=== PATIENT | female | born 1955 | race Caucasian/White ===

== ENCOUNTER 2017-10-19 13:29 | Emergency (ER) | payer BC ==
[2017-10-19 13:44] VITALS: BP 140/75
[2017-10-19] MEDS ORDERED: Triamcinolone Acetonide 40 MG/ML 1 ML MDV INJECT ONE (14:09)
--- NOTE | 2017-10-20 07:00 | EDM.PDOC ---
ED HPI GENERAL MEDICAL PROBLEM - General Chief Complaint: Skin Complaint Stated Complaint: SKIN IRRITATION Time Seen by Provider: 10/19/17 14:00 Source of Information: Reports: Patient History Limitations: Reports: No Limitations - History of Present Illness INITIAL COMMENTS - FREE TEXT/NARRATIVE: PtCris presents to ER with complaints of rash to her arms. Denies any fever or chills. No exposure to new medications, detergents, or soaps. She states that she did take one dose of benadryl on Friday. Location: Reports: Upper Extremity, Left, Upper Extremity, Right Associated Symptoms: Reports: Rash - Related Data Allergies Allergy/AdvReac Type Severity Reaction Status Date / Time metformin Allergy Diarrhea Verified 10/19/17 13:47 prednisone Allergy Anxiety Verified 10/19/17 13:48 Home Meds: Home Meds Ascorbic Acid [Vitamin C] 250 mg PO DAILY 10/19/17 [History] Calcium Carbonate [Calcium] 600 mg PO DAILY 10/19/17 [History] Cholecalciferol (Vitamin D3) [Vitamin D3] 800 units PO DAILY 10/19/17 [History] Chromium Picolinate 1 tab PO DAILY 10/19/17 [History] Magnesium Oxide [Magnesium] 500 mg PO DAILY 10/19/17 [History] Nystatin 1 applic TOP BID 10/19/17 [History] Past Medical History HEENT History: Reports: Cataract, Other (See Below) Other HEENT History: Presbyopia, Myopia Cardiovascular History: Reports: High Cholesterol Endocrine/Metabolic History: Reports: Diabetes, Type II, Obesity/BMI 30+ Hematologic History: Reports: Other (See Below) Other Hematologic History: Factor V inhibitor disorder Social & Family History - Tobacco Use Smoking Status *Q: Never Smoker - Recreational Drug Use Recreational Drug Use: No ED ROS GENERAL - Review of Systems Review Of Systems: See Below Constitutional: Reports: No Symptoms HEENT: Reports: No Symptoms Respiratory: Reports: No Symptoms Cardiovascular: Reports: No Symptoms Endocrine: Reports: No Symptoms GI/Abdominal: Reports: No Symptoms : Reports: No Symptoms Musculoskeletal: Reports: No Symptoms Skin: Reports: Pruritis, Rash Neurological: Reports: No Symptoms Psychiatric: Reports: No Symptoms Hematologic/Lymphatic: Reports: No Symptoms Immunologic: Reports: No Symptoms ED EXAM, GENERAL - Physical Exam Exam: See Below Exam Limited By: No Limitations General Appearance: Alert, WD/WN, No Apparent Distress Eye Exam: Bilateral Eye: EOMI, Normal Fundi, Normal Inspection, PERRL Ears: Normal External Exam, Normal Canal, Hearing Grossly Normal, Normal TMs Ear Exam: Bilateral Ear: Auricle Normal, Canal Normal, TM normal Nose: Normal Inspection, Normal Mucosa, No Blood Throat/Mouth: Normal Inspection, Normal Lips, Normal Teeth, Normal Gums, Normal Oropharynx, Normal Voice, No Airway Compromise Head: Atraumatic, Normocephalic Neck: Normal Inspection, Supple, Non-Tender, Full Range of Motion Respiratory/Chest: No Respiratory Distress, Lungs Clear, Normal Breath Sounds, No Accessory Muscle Use, Chest Non-Tender Cardiovascular: Normal Peripheral Pulses, Regular Rate, Rhythm, No Edema, No Gallop, No JVD, No Murmur, No Rub GI/Abdominal: Normal Bowel Sounds, Soft, Non-Tender, No Organomegaly, No Distention, No Abnormal Bruit, No Mass (Female) Exam: Deferred Rectal (Female) Exam: Deferred Back Exam: Normal Inspection, Full Range of Motion, NT Extremities: Normal Inspection, Normal Range of Motion, Non-Tender, Normal Capillary Refill, No Pedal Edema Neurological: Alert, Oriented, CN II-XII Intact, Normal Cognition, Normal Gait, Normal Reflexes, No Motor/Sensory Deficits Psychiatric: Normal Affect, Normal Mood Skin Exam: Warm, Dry, Intact, Normal Color, No Rash Lymphatic: No Adenopathy Course - Vital Signs Last Recorded V/S: Last Vital Signs Temp 37.2 C 10/19/17 13:36 Pulse 98 10/19/17 13:36 Resp 16 10/19/17 13:36 BP 140/75 10/19/17 13:36 Pulse Ox 96 10/19/17 13:36 - Orders/Labs/Meds Meds: Medications Discontinued Medications Generic Name Dose Route Start Last Admin Trade Name Luisq PRN Reason Stop Dose Admin Triamcinolone Acetonide 40 mg 10/19/17 14:09 10/19/17 14:17 Kenalog-40 INJECT 10/19/17 14:10 40 mg ONETIME ONE Administration Departure - Departure Time of Disposition: 14:45 Disposition: Home, Self-Care 01 Clinical Impression: Contact dermatitis - Discharge Information Instructions: Allergies, Adult, Triamcinolone injection Referrals: PCP,None [Primary Care Provider] - Forms: ED Department Discharge Additional Instructions: Take benadryl every 4-6 hours as needed for itching. Follow-up in clinic in 5-7 days if not improving.
== END 2017-10-19 14:45 | disposition home or self-care (01) ==
LOC: VM.ED 13:29
DX: L25.9 Unspecified contact dermatitis, unspecified cause (principal); E78.00 Pure hypercholesterolemia, unspecified; E11.9 Type 2 diabetes mellitus without complications; Z88.8 Allergy status to other drugs, medicaments and biological substances; Z79.899 Other long term (current) drug therapy
CPT/HCPCS: 96372; 99282; J3301

== ENCOUNTER 2025-04-29 06:52 | Day surgery (SDC) | payer MEDICARE ==
[2025-04-29] MEDS: Lactated Ringers 1,000 ML IV SCH (07:21)
[2025-04-29] MEDS ORDERED: Propofol 200 MG/20 ML SDV ONE (07:59)
[2025-04-29] MEDS ORDERED: fentaNYL 100 MCG/2 ML SDV ONE (07:59)
[2025-04-29] MEDS ORDERED: ePHEDrine 50 MG/ML SDV ONE (09:00)
[2025-04-29 09:25] VITALS: BP 100/57; PULSE 87
== END 2025-04-29 10:11 | disposition home or self-care (01) ==
LOC: VM.SDS 06:52
PROVIDERS: ATTEND Student in an Organized Health Care Education/Training Program
DX: K31.7 Polyp of stomach and duodenum (principal); E78.5 Hyperlipidemia, unspecified; E11.9 Type 2 diabetes mellitus without complications; E66.3 Overweight; I25.10 Atherosclerotic heart disease of native coronary artery without angina pectoris; Z88.8 Allergy status to other drugs, medicaments and biological substances; Z68.27 Body mass index [BMI] 27.0-27.9, adult; Z79.899 Other long term (current) drug therapy
CPT/HCPCS: 43239; 82947; J2704; J3010; J7120; 00731; 88305; 99100; J3490